=== PATIENT | female | born 1930 | race Caucasian/White ===

== ENCOUNTER 2018-09-05 09:02 | Inpatient (IN) | payer OTHER ==
[~2018-09-05] VITALS: Ht 165.1 cm; Wt 74.9 kg
[2018-09-05 09:06] VITALS: BP 206/80
[2018-09-05] MEDS ORDERED: LIPITOR40 MG PO (09:24)
[2018-09-05] MEDS ORDERED: CELEXA10 MG PO (09:25)
[2018-09-05] MEDS ORDERED: LISINOPRIL2.5 MG PO (09:25)
[2018-09-05] MEDS ORDERED: OXYBUTYNIN 5 MG5 M2 PO (09:25)
[2018-09-05] MEDS ORDERED: METFORMIN HCL500 MG PO (09:25)
[2018-09-05] MEDS ORDERED: VITAMIN E400 UNIT PO (09:26)
[2018-09-05] MEDS ORDERED: FISH OIL 1,001000 M2 PO (09:26)
[2018-09-05] MEDS ORDERED: CALCIUM 500 +1 EAC5 PO (09:28)
[2018-09-05] MEDS ORDERED: GLYBURIDE 2.52.5 MG PO (09:29)
[2018-09-05 09:32] LABS: ABSOLUTE BASOPHILS 0.1 thou/uL (0.0-0.2); ABSOLUTE EOSINOPHILS 0.2 thou/uL (0.0-0.7); ABSOLUTE LYMPHOCYTES 2.2 thou/uL (0.8-5.3); ABSOLUTE MONOCYTES 0.5 thou/uL (0.0-1.2); ABSOLUTE NEUTROPHILS 5.5 thou/uL (1.6-8.1); BASOPHILS 0.7 %; EOSINOPHILS 2.9 %; HEMATOCRIT 37.1 % (37.0-47.0); HEMOGLOBIN 12.5 gm/dL (12.0-15.0); LYMPHOCYTES 25.7 %; MCH 29.7 pg (26.0-34.0); MCHC 33.7 g/dL (28.0-37.0); MCV 88.2 fL (80.0-100.0); MONOCYTES 5.4 %; MPV 9.5 fl. (7.2-11.1); NUCLEATED RBCS 0 /100WBC; PLATELET COUNT* 195 thou/uL (150-400); POLYS 65.3 %; RDW-CV 13.9 % (10.5-14.5); WBC 8.4 thou/uL (4.0-11.0)
[2018-09-05 09:37] LABS: ANION GAP 12 mmol/L (7-16); BUN 25 mg/dL (7-18); CALCIUM 9.6 mg/dL (8.5-10.1); CHLORIDE 104 mmol/L (98-107); CO2 25 mmol/L (21-32); CREATININE 1.1 mg/dL (0.6-1.3); GLUCOSE 206 mg/dL (70-99); POTASSIUM 4.3 mmol/L (3.5-5.1); SODIUM 141 mmol/L (136-145)
[2018-09-05 09:48] LABS: ALBUMIN 3.8 g/dL (3.4-5.0); ALKALINE PHOSPHATASE 76 U/L (46-116); NT-PRO BRAIN NAT PEPTIDE 476 pg/mL (<300); SGOT 13 U/L (15-37); SGPT 19 U/L (30-65); TOTAL BILIRUBIN 0.6 mg/dL (<0.1-1.0); TOTAL PROTEIN 7.5 g/dL (6.4-8.2); TROPONIN-I LEVEL <0.06 ng/mL (<0.06)
[2018-09-05 09:55] LABS: URINE BILIRUBIN NEGATIVE (Negative); URINE BLOOD NEGATIVE (Negative); URINE CLARITY CLEAR; URINE COLOR YELLOW; URINE GLUCOSE-RANDOM NEGATIVE (Negative); URINE KETONES NEGATIVE (Negative); URINE LEUKOCYTES-REFLEX 1+ (Negative); URINE NITRITE-REFLEX NEGATIVE (Negative); URINE PROTEIN NEGATIVE (Negative); URINE UROBILINOGEN 0.2 E.U./dl (0.2-1.0)
[2018-09-05 09:57] LABS: SQUAMOUS 0-3 Few /LPF (0-3)
[2018-09-05 09:58] LABS: BACTERIA-REFLEX 1-9 Few /HPF (None Seen); MUCUS None Seen strn/LPF (None Seen); URINE RBC 0-2 Rare /HPF (0-2); URINE WBC-REFLEX 0-5 Rare /HPF (0-5)
[2018-09-05 09:59] LABS: CASTS None Seen /LPF (None Seen); CRYSTALS None Seen /LPF (None Seen)
[2018-09-05] MEDS ORDERED: ANTIVERT25 MG PO (12:42)
[2018-09-05] MEDS ORDERED: ZOFRAN ODT4 MG DISSOLVE (12:42)
[2018-09-05] MEDS ORDERED: NORCO 5-325 TA1 EAC1 PO (12:42)
[2018-09-05] MEDS ORDERED: KEFLEX500 M1 PO (12:42)
[2018-09-05 14:15] VITALS: BP 170/59
[2018-09-05 14:19] VITALS: BP 168/60
[2018-09-05] MEDS ORDERED: MAXZIDE-25 MG1 EACH PO (14:55)
[2018-09-05 15:46] VITALS: BP 140/51
[2018-09-05 19:50] VITALS: BP 146/50
[2018-09-06] VITALS (7 sets, daily range): BP systolic 98–144; BP diastolic 39–73
[2018-09-06 06:53] LABS: ABSOLUTE EOSINOPHILS 0.3 thou/uL (0.0-0.7); ABSOLUTE LYMPHOCYTES 2.9 thou/uL (0.8-5.3); ABSOLUTE MONOCYTES 0.5 thou/uL (0.0-1.2); ABSOLUTE NEUTROPHILS 3.6 thou/uL (1.6-8.1); BASOPHILS 0.5 %; HEMATOCRIT 32.5 % (37.0-47.0); LYMPHOCYTES 40.1 %; MCH 30.6 pg (26.0-34.0); MCHC 33.8 g/dL (28.0-37.0); MCV 90.8 fL (80.0-100.0); MONOCYTES 6.6 %; MPV 10.3 fl. (7.2-11.1); NUCLEATED RBCS 0 /100WBC; POLYS 48.8 %; RBC 3.58 mil/uL (4.20-5.00); WBC 7.3 thou/uL (4.0-11.0)
[2018-09-06 07:01] LABS: CALCIUM 9.1 mg/dL (8.5-10.1); CREATININE 1.1 mg/dL (0.6-1.3); POTASSIUM 4.6 mmol/L (3.5-5.1)
[2018-09-06 07:20] LABS: PLATELET ESTIMATE DECREASED
[2018-09-06 07:22] LABS: PLATELET COUNT* 139 thou/uL (150-400)
[2018-09-06] MEDS ORDERED: TRAMADOL 50 MG50 MG PO (11:31)
--- NOTE | 2018-09-06 12:27 | EKG ---
[place] [address] ELECTROCARDIOGRAM REPORT Name: MANAV CASAREZ Room: [address] IN [facility].#: [id number] Admission: 09/05/18 Attend Phys: Juan Jose Wadsworth MD Discharge: Date of : 32 Report #: [id number] THIS REPORT FOR: //name// [facility] ED Test Date: 2018-09-05 Test Time: 09:33:25 Pat Name: MANAV CASAREZ Department: Room: [facility] Gender: F Supervisor Print Line: : 1930 Requested By: Brice Albert Order Number: [id number] MD: Bishop Sorenson Measurements Intervals [place] Rate: 63 P: -51 KS: 150 QRS: -35 QRSD: 152 T: 108 QT: 511 QTc: 524 Interpretive Statements Sinus or ectopic atrial rhythm Left bundle branch block No previous ECG available for comparison Electronically Signed On 09-06-2018 12:26:57 CDT by Bishop Sorenson [email or web address] <ELECTRONICALLY SIGNED> By: Bishop Sorenson MD, [facility] 09/06/18 1226 Bishop Sorenson MD, FAC /EPI
== END 2018-09-06 13:40 | disposition home health service (06) | DRG 690 ==
LOC: M.ERS 09:02 → M.2W 12:56 → M.TBA-ER 12:56 → M.2W 13:50
PROVIDERS: Emergency Medicine Emergency Medical Services; ADMIT Internal Medicine
DX: N39.0 Urinary tract infection, site not specified (principal); M79.662 Pain in left lower leg; I10 Essential (primary) hypertension; E78.00 Pure hypercholesterolemia, unspecified; M19.90 Unspecified osteoarthritis, unspecified site; M54.9 Dorsalgia, unspecified; R55 Syncope and collapse; E11.9 Type 2 diabetes mellitus without complications; Z79.84 Long term (current) use of oral hypoglycemic drugs; Z86.73 Personal history of transient ischemic attack (TIA), and cerebral infarction without residual deficits